=== PATIENT | female | born 1965 | race Caucasian/White ===

== ENCOUNTER → 2018-04-22 12:03 | Outpatient (CLI) | payer MEDICARE, MEDICAID, SELFPAY ==
--- NOTE | 2018-04-22 | DI.MG.S_ITS ---
BILATERAL DIGITAL SCREENING MAMMOGRAM 3D/2D WITH CAD: 04/22/2018 CLINICAL: Routine screening. Baseline exam. No prior exams were available for comparison. There are scattered fibroglandular elements in both breasts. Current study was also evaluated with a Computer Aided Detection (CAD) system. No significant masses, calcifications, or other findings are seen in either breast. IMPRESSION: NEGATIVE There is no mammographic evidence of malignancy. A 1 year screening mammogram is recommended. This exam was interpreted at Station ID: [id number]. NOTE: For mammograms, a report in lay terms will be sent to the patient. Approximately 15% of breast malignancies will not be visualized mammographically. In the management of a palpable breast mass, a negative mammogram must not discourage biopsy of a clinically suspicious lesion. Electronically Signed By: Royce roach/garrett:04/22/2018 12:45:55 letter sent: Normal Exam ACR BI-RADS Category 1: Negative [id number]
== END ==
PROVIDERS: PCP Internal Medicine; Visit Provider Internal Medicine
DX: Z12.31 Encounter for screening mammogram for malignant neoplasm of breast (principal)
CPT/HCPCS: 77063; 77067

== ENCOUNTER 2018-04-27 17:49 | Emergency (ER) | payer MEDICARE, MEDICAID, SELFPAY ==
[2018-04-27] VITALS (7 sets, daily range): BP systolic 163–193; BP diastolic 72–97; PULSE 100–104; RESP 13–22; TEMP 36.6; O2SAT 96–100
--- NOTE | 2018-04-27 18:36 | DI.RAD.S_ITS ---
PROCEDURE: XR CHEST 1V INDICATIONS: chest pain TECHNIQUE: One view of the chest was acquired. COMPARISON: [facility], , CHEST 2 VIEW, 09/20/2014, 17:16. FINDINGS: Surgical changes and devices: None. Lungs and pleura: Lungs are clear. No pleural effusions or pneumothorax. Mediastinum: Mediastinal contours appear normal. Heart size is normal. Bones and chest wall: No suspicious bony lesions. Overlying soft tissues appear unremarkable. IMPRESSION: No acute process. Dictated by: Sigrid Mcfarlane M.D. on 04/27/2018 at 19:19 Approved by: Sigrid Mcfarlane M.D. on 04/27/2018 at 19:20
[2018-04-27 18:48] LABS: Add Manual Diff / Slide Review NO; Basophils Absolute Auto 100 /uL (0-100); Basophils Percent Auto 0.6 % (0-2); Eosinophils Absolute Auto 100 /uL (0-450); Eosinophils Percent Auto 0.7 % (2-4); Hematocrit 40.3 % (36-46); Hemoglobin 13.2 g/dL (12.0-16.0); Lymphocytes Absolute Auto 1000 /uL (1100-4500); Lymphocytes Percent Auto 9.5 % (25-40); Mean Corpuscular HGB Conc 32.7 % (30-36); Mean Corpuscular Hemoglobin 29.3 PG (26-34); Mean Corpuscular Volume 89.6 fL (80-100); Monocytes Absolute Auto 500 /uL (0-900); Monocytes Percent Auto 4.2 % (3-14); Neutrophils Absolute Auto 9300 /uL (1500-7000); Platelet Count 272 X10^3/uL (150-400); Red Blood Cell Count 4.49 X10^6/uL (4.0-5.2); Red Cell Distribution Width 14.6 % (11.6-14.8)
[2018-04-27 18:52] LABS: PTT Partial Thromboplastin Tim 34 SECONDS (26.4-36.2)
[2018-04-27 18:54] LABS: Alanine Aminotransferase 23 IU/L (9-52); Albumin 3.8 g/dL (3.5-5.0); Albumin Globulin Ratio 1.4 (1.0-2.8); Alkaline Phosphatase 78 U/L (38-126); Aspartate Aminotransferase 19 IU/L (14-36); BUN Creatinine Ratio 13.9 (6-22); Bilirubin Total 0.9 mg/dL (0.2-1.3); Blood Urea Nitrogen 25 mg/dL (7-17); Calcium 9.2 mg/dL (8.4-10.2); Carbon Dioxide 20 mmol/L (22-32); Chloride 100 mmol/L (98-107); Creatine Kinase 48 U/L (30-135); Estimated Glomerular Filt Rate 29.4 mL/min (>60); Globulin 2.8 g/dL (1.7-4.1); HEMOLYSIS < 15 (0-50); Lipase 62 U/L (23-300); Potassium 4.7 mmol/L (3.4-5.1); Sodium 134 mmol/L (137-145); Total Protein 6.6 g/dL (6.3-8.2)
[2018-04-27 18:55] LABS: Glucose 490 mg/dL (70-100)
--- NOTE | 2018-04-27 19:03 | ED.CHESTPAIN ---
HPI - Chest Pain General Chief Complaint: Chest Pain Stated Complaint: CHEST PAIN, LEFT ARM IS NUMB Time Seen by Provider: 04/27/18 18:34 Source: patient and family Mode of arrival: ambulatory Limitations: no limitations History of Present Illness HPI narrative: 52-year-old female former smoker with history of hypertension and GERD presents with her son in the chief complaint of some left-sided chest pain that started at 1:00 p.m. while at rest. She thinks that goes through to her back. Additionally she states her left arm is causing her discomfort. She is not dizzy nor weak or lightheaded. She denies any shortness of breath. She has had no nausea, vomiting or diarrhea. She denies recent travel, injury, surgery or history of clots. She has had no fever chills and denies any cough. She denies any provocation or palliation of her discomfort MD complaint: chest pain Onset (ago): hour(s) Duration: constant Onset: during rest Pain location: left chest Quality: tightness Pain radiation: back Relieving factors: nothing Exacerbating factors: nothing Treatments prior to arrival chest pain: none Related Data Home Medications Medication Instructions Recorded Confirmed VITAMIN D (Vitamin D3) 2,000 unit PO QDAY #0 10/22/11 amlodipine [Norvasc] 5 mg PO QDAY #0 10/22/11 Fish Oil (#FISH OIL CONCENTRATE) 1,000 mg PO BID #0 02/03/12 MULTIVITAMIN 1 cap PO QDAY #0 02/03/12 albuterol sulfate [Proventil HFA] 1 puff INH PRN #8.5 gm 02/03/12 aspirin 81 mg PO QDAY #0 02/03/12 Acetaminophen/Aspirin/Caffei 1 sgl PO Q DAY PRN #0 02/19/12 (EXCEDRIN EXTRA STRENGTH 250 MG-250 MG-65 MG~) insulin lispro [Humalog U-100 0 unit SQ SLIDE #3 ml 02/19/12 Insulin] Previous Rx's Medication Instructions Recorded Syringes: 1cc Insulin Syringes 0 syr #50 02/25/12 with [place] insulin glargine [Lantus Solostar 30 unit SQ HS #3 ml 04/05/12 U-100 Insulin] ropinirole 2 mg PO HS #90 09/15/12 amoxicillin 500 mg PO Q8H #26 cap 09/21/16 fluticasone 1 spray INTRANASAL SEE 09/21/16 INSTRUCTIONS #16 gm tramadol 50 mg PO Q6HP PRN #15 tab 09/21/16 Allergies Allergy/AdvReac Type Severity Reaction Status Date / Time lisinopril Allergy Intermediate COUGH Verified 04/27/18 19:18 duloxetine AdvReac Severe SUICIDAL Verified 04/27/18 19:18 Review of Systems Constitutional Denies chills, Denies fever(s), Denies lethargy and Denies weakness Eyes Denies change in vision, Denies eye discharge, Denies irritation and Denies loss of vision ENT Ears, Nose, Mouth, and Throat: Denies change in voice, Denies neck pain and Denies sore throat Cardiovascular Reports chest pain, Denies irregular heart rhythm, Denies lightheadedness, Denies palpitations, Denies dyspnea, Denies dyspnea on exertion and Denies orthopnea Respiratory Denies cough, Denies dyspnea, Denies dyspnea on exertion and Denies wheezing Gastrointestinal Gastrointestinal: Denies abdominal pain, Denies change in bowel habits, Denies diarrhea, Denies nausea and Denies vomiting Genitourinary Denies hematuria, Denies flank pain, Denies urinary incontinence and Denies urinary urgency Musculoskeletal Reports back pain and Denies neck pain Integumentary/Breasts Denies pruritus, Denies erythema, Denies rash and Denies wounds Neurologic Denies confusion, Denies loss of vision and Denies weakness Psychiatric Denies anxiety, Denies confusion, Denies depression, Denies homicidal ideation and Denies suicidal ideation Endocrine Denies palpitations Hematologic/Lymphatic Denies easy bruising Allergic/Immunologic Denies wheezing PFSH Social History Smoking Status: Former smoker Social History Smoking Status: Former smoker Exam Narrative Exam Narrative: GENERAL: 52-year-old female appears stated age. She is overweight and anxious, son at bedside HEAD: Atraumatic. Normocephalic. No temporal or scalp tenderness. EYES: Pupils equal round and reactive. Extraocular motions intact. No scleral icterus. No injection or drainage. ENT: Nose without bleeding, purulent drainage or septal hematoma. Throat without erythema, tonsillar hypertrophy or exudate. Uvula midline. Airway patent. NECK: Trachea midline. No JVD or lymphadenopathy. Supple, nontender, no meningeal signs. CARDIOVASCULAR: Regular rate and rhythm without murmurs, gallops, or rubs. RESPIRATORY: Clear to auscultation. Breath sounds equal bilaterally. No wheezes, rales, or rhonchi. GASTROINTESTINAL: Abdomen soft, non-tender, nondistended. No hepato-splenomegaly, or palpable masses. No guarding. EXTREMITIES: No clubbing, cyanosis, or edema. No joint tenderness, effusion, or edema noted. BACK: Nontender without deformity or crepitance. No flank tenderness. NEURO: AOx3. SKIN: No rash or erythema. Initial Vital Signs Initial Vital Signs: Vital Signs Temperature 97.9 F 04/27/18 17:54 Pulse Rate 102 H 04/27/18 17:54 Respiratory Rate 18 04/27/18 17:54 Blood Pressure 172/75 H 04/27/18 17:54 Pulse Oximetry 96 04/27/18 17:54 Scores HEART Score Heart Score history: Moderately Suspicious Heart Score EKG: Normal Heart Score Age: 45-64 years old Heart Score risk factors: 1-2 risk factors Heart Score troponin: < or = to normal limit Heart Score Total: 3 Course Course Narrative: Patient resting comfortably at the end of visit. Orders Ordered: ED Orders 04/27/18 19:55 CT angio chest PE protocol Stat 04/27/18 21:29 Troponin I Stat 04/27/18 21:41 EKG-12 Lead Stat Discontinued Medications Sodium Chloride (Normal Saline 0.9%) 1,000 mls @ 1,000 mls/hr IV BOLUS ONE Stop: 04/27/18 21:10 Last Infusion: 04/27/18 22:27 Dose: 0 mls/hr Admin: 04/27/18 20:19 Dose: 1,000 mls/hr Insulin Human Regular (Humulin R) 10 unit SUBCUT NOW ONE Stop: 04/27/18 19:56 Last Admin: 04/27/18 20:15 Dose: 10 unit Ketorolac Tromethamine (Toradol) 15 mg IV NOW ONE Stop: 04/27/18 19:56 Last Admin: 04/27/18 20:19 Dose: 15 mg Ondansetron HCl (Zofran) 4 mg IV NOW ONE Stop: 04/27/18 20:19 Last Admin: 04/27/18 20:24 Dose: 4 mg Vital Signs - 8 hr 04/27/18 20:48 04/27/18 21:00 04/27/18 21:30 Pulse Rate 102 H 104 H 103 H Respiratory Rate 22 16 20 Blood Pressure [Left Arm] 193/97 H 170/78 H 163/72 H Pulse Oximetry 98 98 100 04/27/18 22:08 Pulse Rate 102 H Respiratory Rate 13 Blood Pressure [Left Arm] 171/96 H Pulse Oximetry 100 MDM - Chest Pain Lab Data Result diagrams: 04/27/18 18:30 04/27/18 18:30 Lab Results 04/27/18 04/27/18 04/27/18 Range/Units 18:30 18:30 18:30 WBC 11.0 (4.5-11.0) X10^3/uL RBC 4.49 (4.0-5.2) X10^6/uL Hgb 13.2 (12.0-16.0) g/dL Hct 40.3 (36-46) % MCV 89.6 (80-100) fL MCH 29.3 (26-34) PG MCHC 32.7 (30-36) % RDW 14.6 (11.6-14.8) % Plt Count 272 (150-400) X10^3/uL Neut % (Auto) 85.0 H (50-75) % Lymph % (Auto) 9.5 L (25-40) % Jerome % (Auto) 4.2 (3-14) % Eos % (Auto) 0.7 L (2-4) % Baso % (Auto) 0.6 (0-2) % Neut # (Auto) 9300 H (7253-0426) /uL Lymph # (Auto) 1000 L (0200-8192) /uL Jerome # (Auto) 500 (0-900) /uL Eos # (Auto) 100 (0-450) /uL Baso # (Auto) 100 (0-100) /uL PT 11.0 (10.1-12.7) SECONDS INR 1.0 (0.9-1.3) APTT 34 (26.4-36.2) SECONDS Sodium 134 L (137-145) mmol/L Potassium 4.7 (3.4-5.1) mmol/L Chloride 100 (98-107) mmol/L Carbon Dioxide 20 L (22-32) mmol/L BUN 25 H (7-17) mg/dL Creatinine 1.80 H (0.52-1.04) mg/dL Estimated GFR 29.4 L (>60) mL/min BUN/Creatinine Ratio 13.9 (6-22) Glucose 490 H* (70-100) mg/dL Calcium 9.2 (8.4-10.2) mg/dL Total Bilirubin 0.9 (0.2-1.3) mg/dL AST 19 (14-36) IU/L ALT 23 (9-52) IU/L Alkaline Phosphatase 78 (38-126) U/L Total Creatine Kinase 48 (30-135) U/L CK-MB (CK-2) TNP CK-MB (CK-2) Rel Index TNP Troponin I < 0.012 (0.01-0.034) ng/mL Total Protein 6.6 (6.3-8.2) g/dL Albumin 3.8 (3.5-5.0) g/dL Globulin 2.8 (1.7-4.1) g/dL Albumin/Globulin Ratio 1.4 (1.0-2.8) Lipase 62 (23-300) U/L 04/27/18 Range/Units 21:29 WBC (4.5-11.0) X10^3/uL RBC (4.0-5.2) X10^6/uL Hgb (12.0-16.0) g/dL Hct (36-46) % MCV (80-100) fL MCH (26-34) PG MCHC (30-36) % RDW (11.6-14.8) % Plt Count (150-400) X10^3/uL Neut % (Auto) (50-75) % Lymph % (Auto) (25-40) % Jerome % (Auto) (3-14) % Eos % (Auto) (2-4) % Baso % (Auto) (0-2) % Neut # (Auto) (9492-4064) /uL Lymph # (Auto) (2605-3093) /uL Jerome # (Auto) (0-900) /uL Eos # (Auto) (0-450) /uL Baso # (Auto) (0-100) /uL PT (10.1-12.7) SECONDS INR (0.9-1.3) APTT (26.4-36.2) SECONDS Sodium (137-145) mmol/L Potassium (3.4-5.1) mmol/L Chloride (98-107) mmol/L Carbon Dioxide (22-32) mmol/L BUN (7-17) mg/dL Creatinine (0.52-1.04) mg/dL Estimated GFR (>60) mL/min BUN/Creatinine Ratio (6-22) Glucose (70-100) mg/dL Calcium (8.4-10.2) mg/dL Total Bilirubin (0.2-1.3) mg/dL AST (14-36) IU/L ALT (9-52) IU/L Alkaline Phosphatase (38-126) U/L Total Creatine Kinase (30-135) U/L CK-MB (CK-2) CK-MB (CK-2) Rel Index Troponin I 0.013 (0.01-0.034) ng/mL Total Protein (6.3-8.2) g/dL Albumin (3.5-5.0) g/dL Globulin (1.7-4.1) g/dL Albumin/Globulin Ratio (1.0-2.8) Lipase (23-300) U/L Imaging Data CT scan - chest: Radiologist's impression: [place] [address] CT Scan Report Signed Patient: Torie Elliott [facility]#: [id number] : 1965Acct:[id number] Age/Sex: 52 / FDate of Service: 04/27/18 Loc: ED Accession Number: [id number] Procedure: CT angio chest PE protocol Ordering Provider: Efrain Herndon D.O. PROCEDURE: CT ANGIO CHEST PE PROTOCOL INDICATIONS: CP, SOB, radiation to back TECHNIQUE: After the administration of intravenous contrast, 2 mm thick sections acquired from the pulmonary apices to the posterior costophrenic angles. 3-dimensional maximum intensity projection (MIP) coronal and sagittal reformats were then acquired through the thorax. For radiation dose reduction, the following was used: automated exposure control, adjustment of mA and/or kV according to patient size. COMPARISON: None. FINDINGS: Image quality: Excellent. Pulmonary arteries: Pulmonary arteries are normal in size, and demonstrate no intraluminal filling defects to suggest central pulmonary embolism. Lungs and pleura: Lungs are clear. No pleural effusions or pneumothorax. Central and peripheral airways are patent. Mediastinum: Heart size is normal, without pericardial effusion. No mediastinal or hilar adenopathy. Thoracic aorta is normal in caliber and enhancement. Esophagus is normal in caliber. Small hiatal hernia. Bones and chest wall: No suspicious bony lesions. Ribs and thoracic spine appear intact throughout. Thyroid gland is within normal limits. No axillary or supraclavicular adenopathy. Abdomen: Visualized upper abdominal solid organs appear normal in the early arterial phase of enhancement. IMPRESSION: 1. No pulmonary embolus. 2. No evidence of acute process. 3. Small hiatal hernia. Dictated by: Sigrid Mcfarlane M.D. on 04/27/2018 at 21:07 Approved by: Sigrid Mcfarlane M.D. on 04/27/2018 at 21:09 [facility] Narrative Medical decision making narrative: Multiple etiologies for patient's symptoms considered including: [Cardiac ischemia but thought less likely given lack of ischemic changes on EKG he has, multiple negative troponins and heart score of 3. Pulmonary embolism or dissection considered but thought less likely given lack of findings on CT angiogram of the chest. Pleurisy and pneumonia considered] Patient's symptoms improved or duration of stay with above-stated therapies. Findings and discharge diagnosis discussed with patient/family followed by verbalization of understanding Return precautions discussed with patient/family whom verbalize understanding. Discharge Plan Departure Patient Disposition: Home Clinical Impression: Atypical chest pain Discharge Date/Time: 04/27/18 22:35 Interventions: ED Discharge Assessment Last Done: 04/27/18 22:35 Instructions: DI for Atypical Chest Pain Activity Restrictions/Additional Instructions: *You have been diagnosed with [ atypical chest pain ] *What to do: * continue to take medications as directed *Follow up with your primary care provider in 2-3 days, call for an appointment. Let them know you were seen in the Emergency Department and that we ask that you be seen in follow up *Return to ER if you should have any new, worsening or concerning symptoms Prescriptions: No Action amlodipine [Norvasc] 5 MG tablet 5 mg PO QDAY Qty: 0 RF: 0 VITAMIN D (Vitamin D3) 2,000 unit PO QDAY Qty: 0 RF: 0 Fish Oil (#FISH OIL CONCENTRATE) 1,000 mg PO BID Qty: 0 RF: 0 albuterol sulfate [Proventil HFA] 90 MCG/PUFF HFA aerosol inhaler 1 puff INH PRN Qty: 8.5 RF: 0 aspirin 81 MG tablet,delayed release (DR/EC) 81 mg PO QDAY Qty: 0 RF: 0 MULTIVITAMIN 1 cap PO QDAY Qty: 0 RF: 0 Acetaminophen/Aspirin/Caffei (EXCEDRIN EXTRA STRENGTH 250 MG-250 MG-65 MG~) 1 sgl PO Q DAY PRN Qty: 0 RF: 0 insulin lispro [Humalog U-100 Insulin] 100 UNIT/1 ML cartridge SQ SLIDE Qty: 3 RF: 0 Syringes: 1cc Insulin Syringes with [place] Qty: 50 RF: 0 insulin glargine [Lantus Solostar U-100 Insulin] 100 UNIT/1 ML insulin pen 30 unit SQ HS Qty: 3 RF: 0 ropinirole 2 MG tablet 2 mg PO HS Qty: 90 RF: 0 amoxicillin 500 MG capsule 500 mg PO Q8H Qty: 26 RF: 0 tramadol 50 MG tablet 50 mg PO Q6HP PRNQty: 15 RF: 0 fluticasone 16 GM spray,suspension 1 spray Intranasal SEE INSTRUCTIONS Qty: 16 RF: 0 Referrals: Nisa Hudson MD [Primary Care Provider] -
[2018-04-27 19:05] LABS: Troponin I < 0.012 ng/mL (0.01-0.034)
--- NOTE | 2018-04-27 19:52 | PC.NURSE ---
Patient has insulin pump, reading blood sugar at 335 at this time. She reports I just gave myself another bolus of insulin.
--- NOTE | 2018-04-27 19:55 | DI.CT.S_ITS ---
PROCEDURE: CT ANGIO CHEST PE PROTOCOL INDICATIONS: CP, SOB, radiation to back TECHNIQUE: After the administration of intravenous contrast, 2 mm thick sections acquired from the pulmonary apices to the posterior costophrenic angles. 3-dimensional maximum intensity projection (MIP) coronal and sagittal reformats were then acquired through the thorax. For radiation dose reduction, the following was used: automated exposure control, adjustment of mA and/or kV according to patient size. COMPARISON: None. FINDINGS: Image quality: Excellent. Pulmonary arteries: Pulmonary arteries are normal in size, and demonstrate no intraluminal filling defects to suggest central pulmonary embolism. Lungs and pleura: Lungs are clear. No pleural effusions or pneumothorax. Central and peripheral airways are patent. Mediastinum: Heart size is normal, without pericardial effusion. No mediastinal or hilar adenopathy. Thoracic aorta is normal in caliber and enhancement. Esophagus is normal in caliber. Small hiatal hernia. Bones and chest wall: No suspicious bony lesions. Ribs and thoracic spine appear intact throughout. Thyroid gland is within normal limits. No axillary or supraclavicular adenopathy. Abdomen: Visualized upper abdominal solid organs appear normal in the early arterial phase of enhancement. IMPRESSION: 1. No pulmonary embolus. 2. No evidence of acute process. 3. Small hiatal hernia. Dictated by: Sigrid Mcfarlane M.D. on 04/27/2018 at 21:07 Approved by: Sigrid Mcfarlane M.D. on 04/27/2018 at 21:09
[2018-04-27] MEDS: INSULIN REGULAR 100 UNIT/ML 3 ML VIAL 10 UNIT SUBCUT (20:15)
[2018-04-27] MEDS: KETOROLAC 60 MG/2 ML VIAL 15 MG IV (20:19)
[2018-04-27] MEDS: SODIUM CHLORIDE 0.9% 1,000 ML 1000 ML IV (20:19)
[2018-04-27] MEDS: ONDANSETRON 4 MG/2 ML INJ IV (20:24)
--- NOTE | 2018-04-27 21:15 | ED_ITS ---
HPI - Chest Pain General Chief Complaint: Chest Pain Stated Complaint: CHEST PAIN, LEFT ARM IS NUMB Time Seen by Provider: 04/27/18 18:34 Source: patient and family Mode of arrival: ambulatory Limitations: no limitations History of Present Illness HPI narrative: 52-year-old female former smoker with history of hypertension and GERD presents with her son in the chief complaint of some left-sided chest pain that started at 1:00 p.m. while at rest. She thinks that goes through to her back. Additionally she states her left arm is causing her discomfort. She is not dizzy nor weak or lightheaded. She denies any shortness of breath. She has had no nausea, vomiting or diarrhea. She denies recent travel, injury, surgery or history of clots. She has had no fever chills and denies any cough. She denies any provocation or palliation of her discomfort MD complaint: chest pain Onset (ago): hour(s) Duration: constant Onset: during rest Pain location: left chest Quality: tightness Pain radiation: back Relieving factors: nothing Exacerbating factors: nothing Treatments prior to arrival chest pain: none Related Data Home Medications Medication Instructions Recorded Confirmed VITAMIN D (Vitamin D3) 2,000 unit PO QDAY #0 10/22/11 amlodipine [Norvasc] 5 mg PO QDAY #0 10/22/11 Fish Oil (#FISH OIL CONCENTRATE) 1,000 mg PO BID #0 02/03/12 MULTIVITAMIN 1 cap PO QDAY #0 02/03/12 albuterol sulfate [Proventil HFA] 1 puff INH PRN #8.5 gm 02/03/12 aspirin 81 mg PO QDAY #0 02/03/12 Acetaminophen/Aspirin/Caffei 1 sgl PO Q DAY PRN #0 02/19/12 (EXCEDRIN EXTRA STRENGTH 250 MG-250 MG-65 MG~) insulin lispro [Humalog U-100 0 unit SQ SLIDE #3 ml 02/19/12 Insulin] Previous Rx's Medication Instructions Recorded Syringes: 1cc Insulin Syringes 0 syr #50 02/25/12 with Karnack insulin glargine [Lantus Solostar 30 unit SQ HS #3 ml 04/05/12 U-100 Insulin] ropinirole 2 mg PO HS #90 09/15/12 amoxicillin 500 mg PO Q8H #26 cap 09/21/16 fluticasone 1 spray INTRANASAL SEE 09/21/16 INSTRUCTIONS #16 gm tramadol 50 mg PO Q6HP PRN #15 tab 09/21/16 Allergies Allergy/AdvReac Type Severity Reaction Status Date / Time lisinopril Allergy Intermediate COUGH Verified 04/27/18 19:18 duloxetine AdvReac Severe SUICIDAL Verified 04/27/18 19:18 Review of Systems Constitutional Denies chills, Denies fever(s), Denies lethargy and Denies weakness Eyes Denies change in vision, Denies eye discharge, Denies irritation and Denies loss of vision ENT Ears, Nose, Mouth, and Throat: Denies change in voice, Denies neck pain and Denies sore throat Cardiovascular Reports chest pain, Denies irregular heart rhythm, Denies lightheadedness, Denies palpitations, Denies dyspnea, Denies dyspnea on exertion and Denies orthopnea Respiratory Denies cough, Denies dyspnea, Denies dyspnea on exertion and Denies wheezing Gastrointestinal Gastrointestinal: Denies abdominal pain, Denies change in bowel habits, Denies diarrhea, Denies nausea and Denies vomiting Genitourinary Denies hematuria, Denies flank pain, Denies urinary incontinence and Denies urinary urgency Musculoskeletal Reports back pain and Denies neck pain Integumentary/Breasts Denies pruritus, Denies erythema, Denies rash and Denies wounds Neurologic Denies confusion, Denies loss of vision and Denies weakness Psychiatric Denies anxiety, Denies confusion, Denies depression, Denies homicidal ideation and Denies suicidal ideation Endocrine Denies palpitations Hematologic/Lymphatic Denies easy bruising Allergic/Immunologic Denies wheezing PFSH Social History Smoking Status: Former smoker Social History Smoking Status: Former smoker Exam Narrative Exam Narrative: GENERAL: 52-year-old female appears stated age. She is overweight and anxious, son at bedside HEAD: Atraumatic. Normocephalic. No temporal or scalp tenderness. EYES: Pupils equal round and reactive. Extraocular motions intact. No scleral icterus. No injection or drainage. ENT: Nose without bleeding, purulent drainage or septal hematoma. Throat without erythema, tonsillar hypertrophy or exudate. Uvula midline. Airway patent. NECK: Trachea midline. No JVD or lymphadenopathy. Supple, nontender, no m eningeal signs. CARDIOVASCULAR: Regular rate and rhythm without murmurs, gallops, or rubs. RESPIRATORY: Clear to auscultation. Breath sounds equal bilaterally. No wheezes, rales, or rhonchi. GASTROINTESTINAL: Abdomen soft, non-tender, nondistended. No hepato- splenomegaly, or palpable masses. No guarding. EXTREMITIES: No clubbing, cyanosis, or edema. No joint tenderness, effusion, or edema noted. BACK: Nontender without deformity or crepitance. No flank tenderness. NEURO: AOx3. SKIN: No rash or erythema. Initial Vital Signs Initial Vital Signs: Vital Signs Temperature 97.9 F 04/27/18 17:54 Pulse Rate 102 H 04/27/18 17:54 Respiratory Rate 18 04/27/18 17:54 Blood Pressure 172/75 H 04/27/18 17:54 Pulse Oximetry 96 04/27/18 17:54 Scores HEART Score Heart Score history: Moderately Suspicious Heart Score EKG: Normal Heart Score Age: 45-64 years old Heart Score risk factors: 1-2 risk factors Heart Score troponin: < or = to normal limit Heart Score Total: 3 Course Course Narrative: Patient resting comfortably at the end of visit. Orders Ordered: ED Orders 04/27/18 19:55 CT angio chest PE protocol Stat 04/27/18 21:29 Troponin I Stat 04/27/18 21:41 EKG-12 Lead Stat Discontinued Medications Sodium Chloride (Normal Saline 0.9%) 1,000 mls @ 1,000 mls/hr IV BOLUS ONE Stop: 04/27/18 21:10 Last Infusion: 04/27/18 22:27 Dose: 0 mls/hr Admin: 04/27/18 20:19 Dose: 1,000 mls/hr Insulin Human Regular (Humulin R) 10 unit SUBCUT NOW ONE Stop: 04/27/18 19:56 Last Admin: 04/27/18 20:15 Dose: 10 unit Ketorolac Tromethamine (Toradol) 15 mg IV NOW ONE Stop: 04/27/18 19:56 Last Admin: 04/27/18 20:19 Dose: 15 mg Ondansetron HCl (Zofran) 4 mg IV NOW ONE Stop: 04/27/18 20:19 Last Admin: 04/27/18 20:24 Dose: 4 mg Vital Signs - 8 hr 04/27/18 20:48 04/27/18 21:00 04/27/18 21:30 Pulse Rate 102 H 104 H 103 H Respiratory Rate 22 16 20 Blood Pressure [Left Arm] 193/97 H 170/78 H 163/72 H Pulse Oximetry 98 98 100 04/27/18 22:08 Pulse Rate 102 H Respiratory Rate 13 Blood Pressure [Left Arm] 171/96 H Pulse Oximetry 100 MDM - Chest Pain Lab Data Result diagrams: 04/27/18 18:30 04/27/18 18:30 Lab Results 04/27/18 04/27/18 04/27/18 Range/Units 18:30 18:30 18:30 WBC 11.0 (4.5-11.0) X10^3/uL RBC 4.49 (4.0-5.2) X10^6/uL Hgb 13.2 (12.0-16.0) g/dL Hct 40.3 (36-46) % MCV 89.6 (80-100) fL MCH 29.3 (26-34) PG MCHC 32.7 (30-36) % RDW 14.6 (11.6-14.8) % Plt Count 272 (150-400) X10^3/uL Neut % (Auto) 85.0 H (50-75) % Lymph % (Auto) 9.5 L (25-40) % Marshall % (Auto) 4.2 (3-14) % Eos % (Auto) 0.7 L (2-4) % Baso % (Auto) 0.6 (0-2) % Neut # (Auto) 9300 H (6696-2389) /uL Lymph # (Auto) 1000 L (6038-7710) /uL Marshall # (Auto) 500 (0-900) /uL Eos # (Auto) 100 (0-450) /uL Baso # (Auto) 100 (0-100) /uL PT 11.0 (10.1-12.7) SECONDS INR 1.0 (0.9-1.3) APTT 34 (26.4-36.2) SECONDS Sodium 134 L (137-145) mmol/L Potassium 4.7 (3.4-5.1) mmol/L Chloride 100 (98-107) mmol/L Carbon Dioxide 20 L (22-32) mmol/L BUN 25 H (7-17) mg/dL Creatinine 1.80 H (0.52-1.04) mg/dL Estimated GFR 29.4 L (>60) mL/min BUN/Creatinine Ratio 13.9 (6-22) Glucose 490 H* (70-100) mg/dL Calcium 9.2 (8.4-10.2) mg/dL Total Bilirubin 0.9 (0.2-1.3) mg/dL AST 19 (14-36) IU/L ALT 23 (9-52) IU/L Alkaline Phosphatase 78 (38-126) U/L Total Creatine Kinase 48 (30-135) U/L CK-MB (CK-2) TNP CK-MB (CK-2) Rel Index TNP Troponin I < 0.012 (0.01-0.034) ng/mL Total Protein 6.6 (6.3-8.2) g/dL Albumin 3.8 (3.5-5.0) g/dL Globulin 2.8 (1.7-4.1) g/dL Albumin/Globulin Ratio 1.4 (1.0-2.8) Lipase 62 (23-300) U/L 04/27/18 Range/Units 21:29 WBC (4.5-11.0) X10^3/uL RBC (4.0-5.2) X10^6/uL Hgb (12.0-16.0) g/dL Hct (36-46) % MCV (80-100) fL MCH (26-34) PG MCHC (30-36) % RDW (11.6-14.8) % Plt Count (150-400) X10^3/uL Neut % (Auto) (50-75) % Lymph % (Auto) (25-40) % Marshall % (Auto) (3-14) % Eos % (Auto) (2-4) % Baso % (Auto) (0-2) % Neut # (Auto) (9770-3826) /uL Lymph # (Auto) (0734-0112) /uL Marshall # (Auto) (0-900) /uL Eos # (Auto) (0-450) /uL Baso # (Auto) (0-100) /uL PT (10.1-12.7) SECONDS INR (0.9-1.3) APTT (26.4-36.2) SECONDS Sodium (137-145) mmol/L Potassium (3.4-5.1) mmol/L Chloride (98-107) mmol/L Carbon Dioxide (22-32) mmol/L BUN (7-17) mg/dL Creatinine (0.52-1.04) mg/dL Estimated GFR (>60) mL/min BUN/Creatinine Ratio (6-22) Glucose (70-100) mg/dL Calcium (8.4-10.2) mg/dL Total Bilirubin (0.2-1.3) mg/dL AST (14-36) IU/L ALT (9-52) IU/L Alkaline Phosphatase (38-126) U/L Total Creatine Kinase (30-135) U/L CK-MB (CK-2) CK-MB (CK-2) Rel Index Troponin I 0.013 (0.01-0.034) ng/mL Total Protein (6.3-8.2) g/dL Albumin (3.5-5.0) g/dL Globulin (1.7-4.1) g/dL Albumin/Globulin Ratio (1.0-2.8) Lipase (23-300) U/L Imaging Data CT scan - chest: Radiologist's impression: [place] [address] CT Scan Report Signed Patient: Torie Elliott [facility]#: [id number] : 1965Acct:[id number] Age/Sex: 52 / FDate of Service: 04/27/18 Loc: ED Accession Number: [id number] Procedure: CT angio chest PE protocol Ordering Provider: Efrain Herndon D.O. PROCEDURE: CT ANGIO CHEST PE PROTOCOL INDICATIONS: CP, SOB, radiation to back TECHNIQUE: After the administration of intravenous contrast, 2 mm thick sections acquired from the pulmonary apices to the posterior costophrenic angles. 3-dimensional maximum intensity projection (MIP) coronal and sagittal reformats were then acquired through the thorax. For radiation dose reduction, the following was used: automated exposure control, adjustment of mA and/or kV according to patient size. COMPARISON: None. FINDINGS: Image quality: Excellent. Pulmonary arteries: Pulmonary arteries are normal in size, and demonstrate no intraluminal filling defects to suggest central pulmonary embolism. Lungs and pleura: Lungs are clear. No pleural effusions or pneumothorax. Central and peripheral airways are patent. Mediastinum: Heart size is normal, without pericardial effusion. No mediastinal or hilar adenopathy. Thoracic aorta is normal in caliber and enhancement. Esophagus is normal in caliber. Small hiatal hernia. Bones and chest wall: No suspicious bony lesions. Ribs and thoracic spine appear intact throughout. Thyroid gland is within normal limits. No axillary or supraclavicular adenopathy. Abdomen: Visualized upper abdominal solid organs appear normal in the early arterial phase of enhancement. IMPRESSION: 1. No pulmonary embolus. 2. No evidence of acute process. 3. Small hiatal hernia. Dictated by: Sigrid Mcfarlane M.D. on 04/27/2018 at 21:07 Approved by: Sigrid Mcfarlane M.D. on 04/27/2018 at 21:09 MDM Narrative Medical decision making narrative: Multiple etiologies for patient's symptoms considered including: [Cardiac ischemia but thought less likely given lack of ischemic changes on EKG he has, multiple negative troponins and heart score of 3. Pulmonary embolism or dissection considered but thought less likely given lack of findings on CT angiogram of the chest. Pleurisy and pneumonia considered] Patient's symptoms improved or duration of stay with above-stated therapies. Findings and discharge diagnosis discussed with patient/family followed by verbalization of understanding Return precautions discussed with patient/family whom verbalize understanding. Discharge Plan Departure Patient Disposition: Home Clinical Impression: Atypical chest pain Discharge Date/Time: 04/27/18 22:35 Interventions: ED Discharge Assessment Last Done: 04/27/18 22:35 Instructions: DI for Atypical Chest Pain Activity Restrictions/Additional Instructions: *You have been diagnosed with [ atypical chest pain ] *What to do: * continue to take medications as directed *Follow up with your primary care provider in 2-3 days, call for an appointment. Let them know you were seen in the Emergency Department and that we ask that you be seen in follow up *Return to ER if you should have any new, worsening or concerning symptoms Prescriptions: No Action amlodipine [Norvasc] 5 MG tablet 5 mg PO QDAY Qty: 0 RF: 0 VITAMIN D (Vitamin D3) 2,000 unit PO QDAY Qty: 0 RF: 0 Fish Oil (#FISH OIL CONCENTRATE) 1,000 mg PO BID Qty: 0 RF: 0 albuterol sulfate [Proventil HFA] 90 MCG/PUFF HFA aerosol inhaler 1 puff INH PRN Qty: 8.5 RF: 0 aspirin 81 MG tablet,delayed release (DR/EC) 81 mg PO QDAY Qty: 0 RF: 0 MULTIVITAMIN 1 cap PO QDAY Qty: 0 RF: 0 Acetaminophen/Aspirin/Caffei (EXCEDRIN EXTRA STRENGTH 250 MG-250 MG-65 MG~) 1 sgl PO Q DAY PRN Qty: 0 RF: 0 insulin lispro [Humalog U-100 Insulin] 100 UNIT/1 ML cartridge SQ SLIDE Qty: 3 RF: 0 Syringes: 1cc Insulin Syringes with Karnack Qty: 50 RF: 0 insulin glargine [Lantus Solostar U-100 Insulin] 100 UNIT/1 ML insulin pen 30 unit SQ HS Qty: 3 RF: 0 ropinirole 2 MG tablet 2 mg PO HS Qty: 90 RF: 0 amoxicillin 500 MG capsule 500 mg PO Q8H Qty: 26 RF: 0 tramadol 50 MG tablet 50 mg PO Q6HP PRNQty: 15 RF: 0 fluticasone 16 GM spray,suspension 1 spray Intranasal SEE INSTRUCTIONS Qty: 16 RF: 0 Referrals: Nisa Hudson MD [Primary Care Provider] -
[2018-04-27 22:04] LABS: Troponin I 0.013 ng/mL (0.01-0.034)
--- NOTE | 2018-04-27 22:13 | PC.NURSE ---
Per patient insulin pump is now reading at 268.
--- NOTE | 2018-04-27 22:16 | PC.NURSE ---
[address] scan, she states she suddenly became nauseous when lying flat. Denies nausea at this time.
== END 2018-04-27 22:35 | disposition home or self-care (01) ==
PROVIDERS: Emergency Provider Emergency Medicine; Family Provider Internal Medicine; PCP Internal Medicine
DX: R07.9 Chest pain, unspecified (principal)
CPT/HCPCS: 36415; 36591; 71045; 71275; 80053; 82550; 83690; 84484; 85025; 85610; 85730; 93005; 96361; 96372; 96374; 96376; 99283; 99285; J1885; J2405; Q9967